=== PATIENT | female | born 1975 | race African-American/Black ===

== ENCOUNTER 2019-01-13 13:11 | Emergency (ER) | payer MEDICAID ==
[~2019-01-13] VITALS: Ht 165.1 cm; Wt 102.1 kg
--- NOTE | 2019-01-13 13:11 | NUR ---
Patient BIBA BLS, transferred to bed 8. RN evaluating patient at bedside.
[2019-01-13 13:16] VITALS: BP 161/86
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
--- NOTE | 2019-01-13 13:33 | NUR ---
[employer] [facility] AT BEDSIDE TAKING PT'S REPORT OF TC
--- NOTE | 2019-01-13 14:12 | NUR ---
DARRIN DIOR AT BEDSIDE
[2019-01-13] MEDS ORDERED: KETOROLAC 60 MG/2 ML VIAL IM ONE (14:20)
[2019-01-13 16:06] VITALS: BP 150/88
--- NOTE | 2019-01-13 16:06 | NUR ---
Patient discharged with v/s stable. Written and verbal after care instructions given and explained. Patient alert, oriented and verbalized understanding of instructions. Ambulatory with steady gait. All questions addressed prior to discharge. ID band removed. Patient advised to follow up with PMD. Rx of HUMALOG, ATENOLOL, AND IBUPROFEN given. Patient educated on indication of medication including possible reaction and side effects. Opportunity to ask questions provided and answered.
== END 2019-01-13 16:00 | disposition home or self-care (01) ==
LOC: MED 13:11
DX: S16.1XXA Strain of muscle, fascia and tendon at neck level, initial encounter (principal); M54.6 Pain in thoracic spine; G89.29 Other chronic pain; I10 Essential (primary) hypertension; E11.9 Type 2 diabetes mellitus without complications; M06.9 Rheumatoid arthritis, unspecified; E78.5 Hyperlipidemia, unspecified; Z88.0 Allergy status to penicillin; Z88.8 Allergy status to other drugs, medicaments and biological substances; Z76.0 Encounter for issue of repeat prescription; V79.69XA Unspecified bus occupant injured in collision with other motor vehicles in traffic accident, initial encounter; Y93.89 Activity, other specified; Y92.9 Unspecified place or not applicable; Y99.8 Other external cause status
CPT/HCPCS: 96372; 99283; J1885

== ENCOUNTER 2019-09-04 16:15 | Emergency (ER) | payer MEDICAID ==
[~2019-09-04] VITALS: Ht 167.6 cm; Wt 70.3 kg
[2019-09-04 16:20] VITALS: BP 140/96
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
--- NOTE | 2019-09-04 16:31 | NUR ---
seth chadwick at chair
[2019-09-04] MEDS ORDERED: KETOROLAC 30 MG/ML VIAL IM ONE (16:35)
--- NOTE | 2019-09-04 16:44 | NUR ---
pt went to xray via wheelchair.
[2019-09-04 17:24] VITALS: BP 140/96
--- NOTE | 2019-09-04 17:25 | NUR ---
Patient discharged with v/s stable. Written and verbal after care instructions given and explained regarding ankle pain . Patient alert, oriented and verbalized understanding of instructions. Ambulatory with steady gait. All questions addressed prior to discharge. ID band removed. Patient advised to follow up with PMD. Rx of ibuprofen given. Patient educated on indication of medication including possible reaction and side effects. Opportunity to ask questions provided and answered.
== END 2019-09-04 17:48 | disposition home or self-care (01) ==
LOC: MED 16:15
DX: M25.572 Pain in left ankle and joints of left foot (principal); M25.511 Pain in right shoulder; E11.9 Type 2 diabetes mellitus without complications; I10 Essential (primary) hypertension; Z88.0 Allergy status to penicillin; Z88.6 Allergy status to analgesic agent; V09.9XXA Pedestrian injured in unspecified transport accident, initial encounter; Y93.89 Activity, other specified; Y92.89 Other specified places as the place of occurrence of the external cause; Y99.8 Other external cause status
CPT/HCPCS: 73030; 73610; 73630; 96372; 99284; J1885; Q0092

== ENCOUNTER 2023-09-15 18:05 | Emergency (ER) | payer MEDICAID ==
[~2023-09-15] VITALS: Ht 165.1 cm; Wt 68.0 kg
[2023-09-15 18:13] VITALS: BP 136/69; PULSE 105; RESP 16; TEMP 97.3; O2SAT 98
== END 2023-09-15 18:24 | disposition left against medical advice (07) ==
LOC: MED 18:05
DX: T50.7X1A Poisoning by analeptics and opioid receptor antagonists, accidental (unintentional), initial encounter (principal); Z53.21 Procedure and treatment not carried out due to patient leaving prior to being seen by health care provider